=== PATIENT | male | born 1945 | race Caucasian/White ===

== ENCOUNTER 2019-12-04 11:05 | Observation (INO) ==
[2019-12-04 12:45] LABS: Basophils % 0.4 %; Eosinophils # 0.1 K/mcL (0.0-0.6); Eosinophils % 1.2 %; Hematocrit 43.5 % (37.5-50.1); Hemoglobin 13.4 g/dL (12.9-16.9); Immature Granulocytes % 0.3 % (0-4); Lymphocytes % 26.3 %; Mean Corpuscular HGB Conc 30.8 g/dL (31.6-35.5); Mean Corpuscular Hemoglobin 30.1 pg (28.0-33.3); Mean Corpuscular Volume 97.8 fL (83.0-100.0); Mean Platelet Volume 10.8 fL (9.4-12.4); Monocytes # 0.6 K/mcL (0.0-1.3); Monocytes % 7.3 %; Platelet Count 207 K/mcL (140-400); Red Blood Count 4.45 M/mcL (4.19-5.50); Red Cell Distribution Width 14.7 % (11.5-14.5); Segmented Neutrophils % 64.5 %; White Blood Count 7.8 K/mcL (4.3-11.1)
[2019-12-04 13:15] LABS: BUN/Creatinine Ratio 20 (6-26); Blood Urea Nitrogen 15 mg/dL (8-23); Calcium 8.6 mg/dL (8.6-10.3); Carbon Dioxide 31 mEq/L (23-29); Chloride 104 mEq/L (98-107); Glucose 105 mg/dL (70-105); Osmolality,Calculated 293 (280-300); Potassium 4.5 mEq/L (3.5-5.1); Sodium 141 mEq/L (136-145); Troponin I < 0.03 ng/mL (< 0.04); eGFR For African Americans > 60 (> 60); eGFR For Non-African Americans > 60 (> 60)
[2019-12-04] MEDS ORDERED: Ondansetron 4 MG/2 ML VIAL IVP PRN (16:30)
[2019-12-04] MEDS ORDERED: Mag Hydrox/Al Hydrox/Simeth 30 ML UDC PO PRN (16:30)
[2019-12-04] MEDS ORDERED: Naloxone 0.4 MG/ML INJ IVP PRN (16:30)
[2019-12-04] MEDS ORDERED: MOM Conc 10 ML UD.LIQ PO PRN (16:30)
[2019-12-04] MEDS ORDERED: *HR* Promethazine 25 MG/ML VIAL IVP PRN (16:30)
[2019-12-04] MEDS ORDERED: Acetaminophen 325 MG TABLET PO PRN (16:30)
[2019-12-04] MEDS ORDERED: Nitroglycerin 0.4 MG TAB.SUBL SL PRN (16:33)
[2019-12-04] MEDS ORDERED: Ipratropium/Albuterol Neb 3 ML IH PRN (16:50)
[2019-12-04] MEDS: *HR* Heparin 5,000 UNIT/ML VIAL SQ SCH (17:52)
[2019-12-04] MEDS: Azithromycin 500 MG in 0.9 % Sodium Chloride 250 ML IVPB SCH (18:02)
[2019-12-04] MEDS: Budesonide/Formoterol 160/4.5 1 PUFF INH IH SCH (21:46)
[2019-12-04] MEDS: Ipratropium/Albuterol Neb 3 ML IH SCH (21:46)
[2019-12-04] MEDS: Melatonin 3 MG TABLET PO SCH (22:41)
[2019-12-05] MEDS: MethylPREDNISolone 40 MG/ML VIAL IVP SCH ×3 (01:20→17:12)
[2019-12-05] MEDS: Ipratropium/Albuterol Neb 3 ML IH SCH ×4 (03:52→22:08)
[2019-12-05 05:52] LABS: Basophils % 0.2 %; Eosinophils % 0.2 %; Hematocrit 44.9 % (37.5-50.1); Hemoglobin 13.4 g/dL (12.9-16.9); Immature Granulocytes % 0.4 % (0-4); Lymphocytes # 1.3 K/mcL (0.6-4.6); Lymphocytes % 15.8 %; Mean Corpuscular HGB Conc 29.8 g/dL (31.6-35.5); Mean Corpuscular Hemoglobin 28.9 pg (28.0-33.3); Mean Platelet Volume 10.8 fL (9.4-12.4); Monocytes # 0.1 K/mcL (0.0-1.3); Monocytes % 1.2 %; Neutrophils # 6.7 K/mcL (1.6-8.9); Platelet Count 237 K/mcL (140-400); Red Blood Count 4.63 M/mcL (4.19-5.50); Red Cell Distribution Width 14.6 % (11.5-14.5); Segmented Neutrophils % 82.2 %; White Blood Count 8.2 K/mcL (4.3-11.1)
[2019-12-05] MEDS: *HR* Heparin 5,000 UNIT/ML VIAL SQ SCH ×2 (06:10→17:13)
[2019-12-05 06:12] LABS: BUN/Creatinine Ratio 15 (6-26); Blood Urea Nitrogen 12 mg/dL (8-23); Calcium 8.7 mg/dL (8.6-10.3); Carbon Dioxide 33 mEq/L (23-29); Chloride 104 mEq/L (98-107); Chol/HDL Ratio 2.4 (0-4.9); Cholesterol 159 mg/dL (< 200); Glucose 131 mg/dL (70-105); HDL Cholesterol 66 mg/dL (40-59); LDL Cholesterol,Calculated 77 mg/dL (< 100); Magnesium 2.2 mg/dL (1.6-2.6); Osmolality,Calculated 296 (280-300); Potassium 4.6 mEq/L (3.5-5.1); Sodium 142 mEq/L (136-145); Triglycerides 78 mg/dL (< 150); eGFR For African Americans > 60 (> 60); eGFR For Non-African Americans > 60 (> 60)
[2019-12-05] MEDS: Aspirin Enteric Coated 81 MG Tablet PO SCH (07:50)
[2019-12-05] MEDS: *HR* HYDROcodone/Acet 5/325 mg TABLET PO PRN ×2 (07:57→22:19)
[2019-12-05] MEDS: Budesonide/Formoterol 160/4.5 1 PUFF INH IH SCH ×2 (09:28→22:08)
[2019-12-05] MEDS ORDERED: Perflutren Lipid Microsphere 1.3 ML in 0.9 % Sodium Chloride 8.7 ML IVP PRN (11:21)
[2019-12-05] MEDS ORDERED: Regadenoson 0.4 MG/5 ML SYRINGE IVP ONE (11:58)
[2019-12-05] MEDS: Azithromycin 500 MG in 0.9 % Sodium Chloride 250 ML IVPB SCH (18:24)
[2019-12-05] MEDS: Melatonin 3 MG TABLET PO SCH (22:18)
[2019-12-05] MEDS: Fluticasone Propionate Nasal 50 MCG/SPRAY BOTTLE NS SCH (22:19)
[2019-12-06] MEDS: MethylPREDNISolone 40 MG/ML VIAL IVP SCH ×2 (00:38→07:58)
[2019-12-06 02:59] LABS: BUN/Creatinine Ratio 21 (6-26); Blood Urea Nitrogen 16 mg/dL (8-23); Calcium 8.8 mg/dL (8.6-10.3); Carbon Dioxide 29 mEq/L (23-29); Chloride 104 mEq/L (98-107); Glucose 184 mg/dL (70-105); Osmolality,Calculated 296 (280-300); Phosphorous 2.8 mg/dL (2.7-4.5); Potassium 4.2 mEq/L (3.5-5.1); Sodium 140 mEq/L (136-145); eGFR For African Americans > 60 (> 60); eGFR For Non-African Americans > 60 (> 60)
[2019-12-06] MEDS: Ipratropium/Albuterol Neb 3 ML IH SCH ×3 (04:00→15:35)
[2019-12-06] MEDS: *HR* Heparin 5,000 UNIT/ML VIAL SQ SCH ×2 (05:45→16:07)
[2019-12-06] MEDS: Fluticasone Propionate Nasal 50 MCG/SPRAY BOTTLE NS SCH ×2 (07:44→07:59)
[2019-12-06] MEDS: Aspirin Enteric Coated 81 MG Tablet PO SCH (07:58)
[2019-12-06] MEDS: *HR* HYDROcodone/Acet 5/325 mg TABLET PO PRN (08:04)
[2019-12-06 09:27] LABS: Basophils % 0.1 %; Eosinophils % 0.1 %; Hematocrit 46.7 % (37.5-50.1); Hemoglobin 14.5 g/dL (12.9-16.9); Immature Granulocytes % 0.6 % (0-4); Lymphocytes # 1.3 K/mcL (0.6-4.6); Lymphocytes % 9.8 %; Mean Corpuscular Hemoglobin 29.7 pg (28.0-33.3); Mean Corpuscular Volume 95.5 fL (83.0-100.0); Mean Platelet Volume 10.7 fL (9.4-12.4); Monocytes # 0.6 K/mcL (0.0-1.3); Monocytes % 4.5 %; Neutrophils # 11.6 K/mcL (1.6-8.9); Platelet Count 276 K/mcL (140-400); Red Blood Count 4.89 M/mcL (4.19-5.50); Red Cell Distribution Width 14.5 % (11.5-14.5); Segmented Neutrophils % 84.9 %; White Blood Count 13.6 K/mcL (4.3-11.1)
[2019-12-06] MEDS: Budesonide/Formoterol 160/4.5 1 PUFF INH IH SCH (09:30)
[2019-12-06] MEDS ORDERED: Loratadine 10 MG TABLET PO PRN (10:55)
[2019-12-06] MEDS ORDERED: *HR* LORazepam 1 MG TABLET PO ONE (14:40)
[2019-12-06] MEDS ORDERED: Metoprolol XL (24 HR) Succ 25 MG TAB.ER.24H PO SCH (15:00)
[2019-12-06 15:54] VITALS: BP 158/80
[2019-12-06] MEDS ORDERED: Azithromycin 250 MG TABLET PO SCH (18:00)
[2019-12-06] MEDS ORDERED: Melatonin 3 MG TABLET PO SCH (21:00)
[2019-12-06] MEDS ORDERED: Finasteride 5 MG TABLET PO SCH (21:00)
[2019-12-06] MEDS ORDERED: rOPINIRole 1 MG TABLET PO SCH (21:00)
[2019-12-07] MEDS ORDERED: Naltrexone HCl 50 MG TABLET PO SCH (09:00)
[2019-12-07] MEDS ORDERED: Cyanocobalamin (B-12) 1,000 MCG TABLET PO SCH (09:00)
[2019-12-07] MEDS ORDERED: predniSONE 20 MG TABLET PO SCH (09:00)
[2019-12-07] MEDS ORDERED: Magnesium Oxide 400 MG TABLET PO SCH (09:00)
== END 2019-12-06 17:53 | disposition home or self-care (01) ==
LOC: EMEROOARM 11:05 → 3BNU 11:05
PROVIDERS: ADMIT Internal Medicine; ATTEND Internal Medicine

== ENCOUNTER 2020-08-11 20:12 | Inpatient (IN) ==
[2020-08-11] MEDS ORDERED: Isovue-370 500 ML BOTTLE IVP ONE (20:35)
[2020-08-11] MEDS ORDERED: Ipratropium/Albuterol Neb 3 ML IH ONE (20:44)
[2020-08-11] MEDS ORDERED: methylPREDNISolone 125 MG/2 ML VIAL IVP ONE (20:44)
[2020-08-11 21:11] LABS: Basophils % 0.3 %; Eosinophils # 0.2 K/mcL (0.0-0.6); Eosinophils % 1.7 %; Hematocrit 47.4 % (37.5-50.1); Hemoglobin 14.3 g/dL (12.9-16.9); Immature Granulocytes % 0.6 % (0-4); Lymphocytes # 2.6 K/mcL (0.6-4.6); Lymphocytes % 25.6 %; Mean Corpuscular HGB Conc 30.2 g/dL (31.6-35.5); Mean Corpuscular Hemoglobin 30.2 pg (28.0-33.3); Mean Corpuscular Volume 100.2 fL (83.0-100.0); Mean Platelet Volume 10.4 fL (9.4-12.4); Monocytes # 0.8 K/mcL (0.0-1.3); Monocytes % 7.7 %; Neutrophils # 6.5 K/mcL (1.6-8.9); Platelet Count 226 K/mcL (140-400); Red Blood Count 4.73 M/mcL (4.19-5.50); Red Cell Distribution Width 14.1 % (11.5-14.5); Segmented Neutrophils % 64.1 %; White Blood Count 10.2 K/mcL (4.3-11.1)
[2020-08-11 21:16] LABS: VBG HCO3 32 mEq/L (21-27); VBG PCO2 68 mmHg (41-51); VBG PH 7.28 pH Units (7.32-7.42); VBG PO2 45 mmHg (25-50)
[2020-08-11 21:32] LABS: BUN/Creatinine Ratio 20 (6-26); Blood Urea Nitrogen 15 mg/dL (8-23); Carbon Dioxide 37 mEq/L (23-29); Chloride 104 mEq/L (98-107); Glucose 81 mg/dL (70-105); Osmolality,Calculated 298 (280-300); Potassium 4.7 mEq/L (3.5-5.1); Sodium 144 mEq/L (136-145); eGFR For African Americans > 60 (> 60); eGFR For Non-African Americans > 60 (> 60)
[2020-08-11 21:33] LABS: Troponin I < 0.03 ng/mL (< 0.04)
[2020-08-11 23:25] LABS: ABG Base Excess 7 mEq/L (-2 to 3); ABG HCO3 34 mEq/L (21-27); ABG Oxygen Saturation 78 % (95-98); ABG PCO2 56 mmHg (35-45); ABG PH 7.39 pH Units (7.32-7.45); ABG PO2 44 mmHg (85-104); ABG TCO2 35 mEq/L (20-26)
[2020-08-11 23:57] LABS: Adenovirus Not Detected (Not Detect); Coronavirus 229E Not Detected (Not Detect); Coronavirus HKU1 Not Detected (Not Detect); Coronavirus NL63 Not Detected (Not Detect); Coronavirus OC43 Not Detected (Not Detect)
[2020-08-11 23:58] LABS: Bordetella Pertussis Not Detected (Not Detect); Chlamydophila pneumoniae Not Detected (Not Detect); Human Metapneumovirus Not Detected (Not Detect); Human Rhinovirus/Enterovirus Not Detected (Not Detect); Influenza A Subtype 2009 H1 Not Detected (Not Detect); Influenza B Not Detected (Not Detect); Mycoplasma pneumoniae Not Detected (Not Detect); Parainfluenza Virus 1 Not Detected (Not Detect); Parainfluenza Virus 2 Not Detected (Not Detect); Parainfluenza Virus 3 Not Detected (Not Detect); Parainfluenza Virus 4 Not Detected (Not Detect); Respiratory Syncytial Virus Not Detected (Not Detect); SARS-CoV-2 DETECTED (Not Detect)
[2020-08-12] MEDS ORDERED: Melatonin 3 MG TABLET PO PRN (01:19)
[2020-08-12] MEDS ORDERED: Naloxone 0.4 MG/ML INJ IVP PRN (01:19)
[2020-08-12] MEDS ORDERED: Acetaminophen 325 MG TABLET PO PRN ×2 (01:19→15:56)
[2020-08-12] MEDS ORDERED: Ondansetron 4 MG/2 ML VIAL IVP PRN (01:19)
[2020-08-12] MEDS ORDERED: Ipratropium/Albuterol Neb 3 ML IH SCH (04:00)
[2020-08-12] MEDS ORDERED: Ketorolac 15 MG/ML VIAL IVP PRN ×2 (04:10→15:57)
[2020-08-12 05:32] LABS: C-Reactive Protein < 5 mg/L (Less than 10); Lactate Dehydrogenase 173 Units/L (140-271)
[2020-08-12 05:49] LABS: Ferritin 78 ng/mL (20-250)
[2020-08-12] MEDS ORDERED: *HR* Heparin 5,000 UNIT/ML VIAL SQ SCH (06:00)
[2020-08-12] MEDS ORDERED: MethylPREDNISolone 40 MG/ML VIAL IVP SCH (06:00)
[2020-08-12] MEDS: Azithromycin 250 MG TABLET PO SCH (08:47)
[2020-08-12] MEDS ORDERED: Azithromycin 500 MG in 0.9 % Sodium Chloride 250 ML IVPB SCH (09:00)
[2020-08-12] MEDS ORDERED: rOPINIRole 1 MG TABLET PO SCH (21:00)
[2020-08-12] MEDS ORDERED: Melatonin 3 MG TABLET PO SCH (21:00)
[2020-08-12] MEDS: Finasteride 5 MG TABLET PO SCH (21:04)
[2020-08-12] MEDS ORDERED: Fluticasone Propionate Nasal 50 MCG/SPRAY BOTTLE NS PRN (23:04)
[2020-08-12] MEDS ORDERED: Saline Nasal Spray 44 ML BOTTLE NS PRN (23:04)
[2020-08-13 03:28] LABS: Mean Platelet Volume 10.7 fL (9.4-12.4); Platelet Count 207 K/mcL (140-400); Red Cell Distribution Width 13.9 % (11.5-14.5)
[2020-08-13 03:29] LABS: Hemoglobin 12.4 g/dL (12.9-16.9); White Blood Count 17.3 K/mcL (4.3-11.1)
[2020-08-13 03:43] LABS: BUN/Creatinine Ratio 32 (6-26); Blood Urea Nitrogen 22 mg/dL (8-23); Calcium 8.7 mg/dL (8.6-10.3); Carbon Dioxide 34 mEq/L (23-29); Chloride 102 mEq/L (98-107); Glucose 161 mg/dL (70-105); Osmolality,Calculated 295 (280-300); Potassium 3.8 mEq/L (3.5-5.1); Sodium 139 mEq/L (136-145); eGFR For African Americans > 60 (> 60); eGFR For Non-African Americans > 60 (> 60)
[2020-08-13 04:10] LABS: Estimated Average Glucose 143 mg/dl; Hemoglobin A1C 6.6 %
[2020-08-13] MEDS ORDERED: *HR* Enoxaparin 40 MG/0.4 ML SYRINGE SQ SCH (06:00)
[2020-08-13] MEDS: Metoprolol XL (24 HR) Succ 25 MG TAB.ER.24H PO SCH ×2 (08:57→09:04)
[2020-08-13] MEDS: Aspirin 81 MG TAB.CHEW PO SCH (08:57)
[2020-08-13] MEDS ORDERED: predniSONE 20 MG TABLET PO SCH (09:00)
[2020-08-13] MEDS: Azithromycin 250 MG TABLET PO SCH (09:05)
[2020-08-13] MEDS: MethylPREDNISolone 40 MG/ML VIAL IVP SCH ×2 (15:22→23:17)
[2020-08-13] MEDS: Budesonide/Formoterol 160/4.5 1 PUFF INH IH SCH ×2 (16:01→20:04)
[2020-08-13] MEDS ORDERED: Ipratropium/Albuterol Neb 3 ML IH ONE (18:37)
[2020-08-13] MEDS: Ipratropium/Albuterol Neb 3 ML IH SCH (20:03)
[2020-08-13] MEDS: Pregabalin 75 MG CAPSULE PO SCH (20:50)
[2020-08-13] MEDS: Finasteride 5 MG TABLET PO SCH (20:50)
[2020-08-13] MEDS: Apixaban 5 MG TABLET PO SCH (20:51)
[2020-08-13] MEDS ORDERED: Melatonin 3 MG TABLET PO SCH (21:00)
[2020-08-13] MEDS ORDERED: rOPINIRole 1 MG TABLET PO SCH (21:00)
[2020-08-14] MEDS: Ipratropium/Albuterol Neb 3 ML IH SCH ×5 (00:10→15:18)
[2020-08-14 08:08] LABS: ABG Base Excess 10 mEq/L (-2 to 3); ABG HCO3 43 mEq/L (21-27); ABG Oxygen Saturation 97 % (95-98); ABG PCO2 105 mmHg (35-45); ABG PH 7.22 pH Units (7.32-7.45); ABG PO2 118 mmHg (85-104); ABG TCO2 46 mEq/L (20-26)
[2020-08-14] MEDS: Pregabalin 75 MG CAPSULE PO SCH ×2 (09:25→20:37)
[2020-08-14] MEDS: Metoprolol XL (24 HR) Succ 25 MG TAB.ER.24H PO SCH (09:25)
[2020-08-14] MEDS: Aspirin 81 MG TAB.CHEW PO SCH (09:25)
[2020-08-14] MEDS: Azithromycin 250 MG TABLET PO SCH (09:25)
[2020-08-14] MEDS: Apixaban 5 MG TABLET PO SCH ×2 (09:25→20:37)
[2020-08-14] MEDS: MethylPREDNISolone 40 MG/ML VIAL IVP SCH ×2 (09:27→17:12)
[2020-08-14] MEDS: Budesonide/Formoterol 160/4.5 1 PUFF INH IH SCH ×2 (11:20→22:16)
[2020-08-14] MEDS ORDERED: Acetaminophen 325 MG TABLET PO PRN (20:09)
[2020-08-14] MEDS ORDERED: Ketorolac 15 MG/ML VIAL IVP PRN (20:11)
[2020-08-14] MEDS ORDERED: Naloxone 0.4 MG/ML INJ IVP PRN (20:12)
[2020-08-14] MEDS ORDERED: Saline Nasal Spray 44 ML BOTTLE NS PRN (20:13)
[2020-08-14] MEDS: Melatonin 3 MG TABLET PO SCH (20:36)
[2020-08-14] MEDS: Finasteride 5 MG TABLET PO SCH (20:38)
[2020-08-15] MEDS: Ipratropium/Albuterol Neb 3 ML IH SCH ×7 (00:11→23:50)
[2020-08-15] MEDS: MethylPREDNISolone 40 MG/ML VIAL IVP SCH ×2 (00:26→08:59)
[2020-08-15] MEDS: Budesonide/Formoterol 160/4.5 1 PUFF INH IH SCH ×2 (07:54→19:41)
[2020-08-15] MEDS: Pregabalin 75 MG CAPSULE PO SCH ×2 (08:58→20:19)
[2020-08-15] MEDS: Aspirin 81 MG TAB.CHEW PO SCH (08:58)
[2020-08-15] MEDS: Azithromycin 250 MG TABLET PO SCH (08:58)
[2020-08-15] MEDS: Apixaban 5 MG TABLET PO SCH ×2 (08:59→20:19)
[2020-08-15] MEDS: Finasteride 5 MG TABLET PO SCH (08:59)
[2020-08-15] MEDS: Metoprolol XL (24 HR) Succ 25 MG TAB.ER.24H PO SCH (08:59)
[2020-08-15] MEDS: Fluticasone Propionate Nasal 50 MCG/SPRAY BOTTLE NS SCH (09:01)
[2020-08-15 09:04] LABS: VBG HCO3 34 mEq/L (21-27); VBG PCO2 50 mmHg (41-51); VBG PH 7.44 pH Units (7.32-7.42); VBG PO2 129 mmHg (25-50)
[2020-08-15 09:22] LABS: BUN/Creatinine Ratio 44 (6-26); Blood Urea Nitrogen 28 mg/dL (8-23); Carbon Dioxide 33 mEq/L (23-29); Chloride 100 mEq/L (98-107); Glucose 133 mg/dL (70-105); Osmolality,Calculated 297 (280-300); Potassium 4.3 mEq/L (3.5-5.1); Sodium 140 mEq/L (136-145); eGFR For African Americans > 60 (> 60); eGFR For Non-African Americans > 60 (> 60)
[2020-08-15] MEDS: predniSONE 20 MG TABLET PO SCH (12:44)
[2020-08-15] MEDS: Melatonin 3 MG TABLET PO SCH (20:20)
[2020-08-16] MEDS: Ipratropium/Albuterol Neb 3 ML IH SCH ×2 (03:38→07:38)
[2020-08-16 07:38] VITALS: BP 137/75
[2020-08-16] MEDS: Budesonide/Formoterol 160/4.5 1 PUFF INH IH SCH (07:38)
[2020-08-16] MEDS: predniSONE 20 MG TABLET PO SCH (08:13)
[2020-08-16] MEDS: Azithromycin 250 MG TABLET PO SCH (08:14)
[2020-08-16] MEDS: Pregabalin 75 MG CAPSULE PO SCH (08:14)
[2020-08-16] MEDS: Aspirin 81 MG TAB.CHEW PO SCH (08:14)
[2020-08-16] MEDS: Metoprolol XL (24 HR) Succ 25 MG TAB.ER.24H PO SCH (08:14)
[2020-08-16] MEDS: Apixaban 5 MG TABLET PO SCH (08:14)
[2020-08-16] MEDS: Finasteride 5 MG TABLET PO SCH (08:14)
[2020-08-16] MEDS: Fluticasone Propionate Nasal 50 MCG/SPRAY BOTTLE NS SCH (08:17)
== END 2020-08-16 10:52 | disposition home or self-care (01) | DRG 177 ==
LOC: 2NENU 20:12 → EMEROOARM 20:12 → SUATTDRO 08-12 00:01 → 2NENU 08-12 00:57 → 3BNU 08-13 15:53
PROVIDERS: ADMIT Family Medicine; ATTEND Internal Medicine

== ENCOUNTER 2021-08-28 21:38 | Inpatient (IN) ==
[2021-08-28] MEDS ORDERED: Isovue-370 500 ML BOTTLE IVP ONE (21:51)
[2021-08-28 22:17] LABS: ABG Base Excess 1 mEq/L (-2 to 3); ABG HCO3 33 mEq/L (21-27); ABG Oxygen Saturation 96 % (95-98); ABG PCO2 84 mmHg (35-45); ABG PO2 106 mmHg (85-104); ABG TCO2 35 mEq/L (20-26)
[2021-08-28 23:53] LABS: Basophils % 0.1 %; Hematocrit 48.3 % (37.5-50.1); Hemoglobin 14.5 g/dL (12.9-16.9); Immature Granulocytes % 0.4 % (0-4); Lymphocytes # 1.2 K/mcL (0.6-4.6); Lymphocytes % 5.3 %; Mean Corpuscular Volume 103.4 fL (83.0-100.0); Mean Platelet Volume 10.9 fL (9.4-12.4); Monocytes # 1.5 K/mcL (0.0-1.3); Monocytes % 6.6 %; Neutrophils # 19.5 K/mcL (1.6-8.9); Platelet Count 188 K/mcL (140-400); Red Blood Count 4.67 M/mcL (4.19-5.50); Red Cell Distribution Width 14.2 % (11.5-14.5); Segmented Neutrophils % 87.6 %; White Blood Count 22.3 K/mcL (4.3-11.1)
[2021-08-29 00:42] LABS: Prothrombin Time 11.5 Seconds (9.4-12.1)
[2021-08-29 00:44] LABS: Alanine Aminotransferase 12 Units/L (7-52); Albumin 3.9 g/dL (3.5-5.7); Albumin/Globulin Ratio 1.7 (1.1-2.2); Alkaline Phosphatase 97 Units/L (34-104); Aspartate Amino Transferase 14 Units/L (13-39); BUN/Creatinine Ratio 23 (6-26); Bilirubin,Direct 0.1 mg/dL (0.0-0.2); Bilirubin,Indirect 0.5 mg/dL (0.0-1.0); Bilirubin,Total 0.6 mg/dL (0.3-1.0); Blood Urea Nitrogen 25 mg/dL (8-23); Calcium 8.8 mg/dL (8.6-10.3); Carbon Dioxide 28 mEq/L (23-29); Chloride 104 mEq/L (98-107); Globulin 2.3 g/dL (2.4-3.5); Glucose 160 mg/dL (70-105); Osmolality,Calculated 300 (280-300); Potassium 4.8 mEq/L (3.5-5.1); Sodium 141 mEq/L (136-145); Total Protein 6.2 g/dL (6.4-8.9); Troponin I < 0.03 ng/mL (< 0.04); eGFR For African Americans > 60 (> 60); eGFR For Non-African Americans > 60 (> 60)
[2021-08-29 00:45] LABS: Activated Partial Thrombo Time 34.8 Seconds (26.0-36.0)
[2021-08-29] MEDS ORDERED: Azithromycin 500 MG in 0.9 % Sodium Chloride 250 ML IVPB ONE (01:27)
[2021-08-29] MEDS ORDERED: cefTRIAXone 1,000 MG in 0.9 % Sodium Chloride 10 ML IVP ONE (01:27)
[2021-08-29 02:45] LABS: Influenza A PCR Negative (Negative); Influenza B PCR Negative (Negative); Resp. Syncytial Virus PCR Negative (Negative)
[2021-08-29 02:52] LABS: SARS-CoV-2 by PCR (In House) Negative (Negative)
[2021-08-29] MEDS ORDERED: methylPREDNISolone 125 MG/2 ML VIAL IVP ONE (03:27)
[2021-08-29 03:45] LABS: ABG Base Excess 5 mEq/L (-2 to 3); ABG HCO3 34 mEq/L (21-27); ABG Oxygen Saturation 98 % (95-98); ABG PCO2 73 mmHg (35-45); ABG PH 7.28 pH Units (7.32-7.45); ABG PO2 117 mmHg (85-104); ABG TCO2 36 mEq/L (20-26)
[2021-08-29] MEDS ORDERED: Melatonin 3 MG TABLET PO PRN (04:59)
[2021-08-29] MEDS ORDERED: *HR* Promethazine 25 MG/ML VIAL IM PRN (04:59)
[2021-08-29] MEDS ORDERED: Ondansetron 4 MG/2 ML VIAL IVP PRN (04:59)
[2021-08-29] MEDS ORDERED: Naloxone 0.4 MG/ML INJ IVP PRN (04:59)
[2021-08-29] MEDS ORDERED: Acetaminophen 325 MG TABLET PO PRN (04:59)
[2021-08-29] MEDS ORDERED: Ipratropium/Albuterol Neb 3 ML IH PRN (05:02)
[2021-08-29] MEDS ORDERED: Azithromycin 500 MG in 0.9 % Sodium Chloride 250 ML IVPB SCH (06:00)
[2021-08-29 06:41] LABS: Basophils % 0.1 %; Hematocrit 45.5 % (37.5-50.1); Hemoglobin 13.9 g/dL (12.9-16.9); Immature Granulocytes % 0.5 % (0-4); Lymphocytes # 1.1 K/mcL (0.6-4.6); Lymphocytes % 5.3 %; Mean Corpuscular HGB Conc 30.5 g/dL (31.6-35.5); Mean Corpuscular Hemoglobin 30.5 pg (28.0-33.3); Mean Platelet Volume 10.6 fL (9.4-12.4); Monocytes # 0.8 K/mcL (0.0-1.3); Monocytes % 3.7 %; Neutrophils # 19.4 K/mcL (1.6-8.9); Platelet Count 186 K/mcL (140-400); Red Blood Count 4.55 M/mcL (4.19-5.50); Red Cell Distribution Width 14.1 % (11.5-14.5); Segmented Neutrophils % 90.4 %; White Blood Count 21.5 K/mcL (4.3-11.1)
[2021-08-29 06:47] LABS: INR 1.1; Prothrombin Time 12.8 Seconds (9.4-12.1)
[2021-08-29 06:59] LABS: Magnesium 2.5 mg/dL (1.6-2.6); Phosphorous 3.2 mg/dL (2.7-4.5)
[2021-08-29 07:14] LABS: BUN/Creatinine Ratio 27 (6-26); Blood Urea Nitrogen 24 mg/dL (8-23); Calcium 8.7 mg/dL (8.6-10.3); Carbon Dioxide 29 mEq/L (23-29); Chloride 104 mEq/L (98-107); Glucose 132 mg/dL (70-105); Osmolality,Calculated 294 (280-300); Potassium 4.9 mEq/L (3.5-5.1); Sodium 139 mEq/L (136-145); eGFR For African Americans > 60 (> 60); eGFR For Non-African Americans > 60 (> 60)
[2021-08-29] MEDS: Ipratropium/Albuterol Neb 3 ML IH SCH ×5 (07:56→23:40)
[2021-08-29] MEDS ORDERED: Vancomycin 1,500 MG/265 ML IV.SOLN IVPB SCH (08:00)
[2021-08-29] MEDS: Cefepime HCl 2,000 MG in 0.9 % Sodium Chloride 10 ML IVP SCH ×3 (09:35→23:55)
[2021-08-29] MEDS: Vancomycin 1,500 MG/265 ML IV.SOLN IVPB SCH ×2 (11:42→23:52)
[2021-08-29] MEDS: MethylPREDNISolone 40 MG/ML VIAL IVP SCH ×2 (13:46→20:43)
[2021-08-29] MEDS ORDERED: *HR* Dextrose 50 % in Water (Syg) 50 ML SYRINGE IVP PRN (16:05)
[2021-08-29] MEDS ORDERED: Dextrose 4 GM Chewable Tablets PO PRN ×2 (16:05)
[2021-08-29] MEDS ORDERED: D5% in Water 1,000 ML IVC PRN (16:05)
[2021-08-29] MEDS: Insulin LISPRO 300 UNITS/3 ML VIAL SUBQ SCH ×2 (17:35→22:02)
[2021-08-29] MEDS ORDERED: Pregabalin 50 MG CAPSULE PO ONE (20:31)
[2021-08-29] MEDS: Melatonin 3 MG TABLET PO SCH (20:42)
[2021-08-30] MEDS: Ipratropium/Albuterol Neb 3 ML IH SCH ×6 (03:47→23:49)
[2021-08-30] MEDS: MethylPREDNISolone 40 MG/ML VIAL IVP SCH ×4 (05:17→21:09)
[2021-08-30] MEDS: Azithromycin 500 MG in 0.9 % Sodium Chloride 250 ML IVPB SCH (05:18)
[2021-08-30 05:48] LABS: Basophils % 0.1 %; Hematocrit 36.5 % (37.5-50.1); Immature Granulocytes % 0.9 % (0-4); Lymphocytes # 1.8 K/mcL (0.6-4.6); Lymphocytes % 10.4 %; Mean Corpuscular Hemoglobin 30.3 pg (28.0-33.3); Mean Corpuscular Volume 97.9 fL (83.0-100.0); Mean Platelet Volume 11.1 fL (9.4-12.4); Monocytes # 0.9 K/mcL (0.0-1.3); Monocytes % 5.1 %; Neutrophils # 14.2 K/mcL (1.6-8.9); Platelet Count 197 K/mcL (140-400); Red Blood Count 3.73 M/mcL (4.19-5.50); Red Cell Distribution Width 14.1 % (11.5-14.5); Segmented Neutrophils % 83.5 %
[2021-08-30 05:53] LABS: Hemoglobin 11.3 g/dL (12.9-16.9)
[2021-08-30 06:09] LABS: BUN/Creatinine Ratio 36 (6-26); Blood Urea Nitrogen 25 mg/dL (8-23); Carbon Dioxide 31 mEq/L (23-29); Chloride 104 mEq/L (98-107); Glucose 138 mg/dL (70-105); Osmolality,Calculated 299 (280-300); Sodium 141 mEq/L (136-145); eGFR For African Americans > 60 (> 60); eGFR For Non-African Americans > 60 (> 60)
[2021-08-30] MEDS: Insulin LISPRO 300 UNITS/3 ML VIAL SUBQ SCH ×4 (08:48→21:48)
[2021-08-30] MEDS: Cefepime HCl 2,000 MG in 0.9 % Sodium Chloride 10 ML IVP SCH ×2 (09:27→16:22)
[2021-08-30 09:31] LABS: ABG Base Excess 5 mEq/L (-2 to 3); ABG HCO3 30 mEq/L (21-27); ABG Oxygen Saturation 94 % (95-98); ABG PCO2 45 mmHg (35-45); ABG PH 7.42 pH Units (7.32-7.45); ABG PO2 71 mmHg (85-104); ABG TCO2 31 mEq/L (20-26)
[2021-08-30] MEDS: Furosemide 20 MG TABLET PO SCH (12:16)
[2021-08-30] MEDS: Metoprolol XL (24 HR) Succ 50 MG TAB.ER.24H PO SCH (12:16)
[2021-08-30] MEDS: Simethicone 80 MG TAB.CHEW PO SCH ×3 (12:16→21:06)
[2021-08-30] MEDS: Vancomycin 1,500 MG/265 ML IV.SOLN IVPB SCH (12:16)
[2021-08-30] MEDS: Pregabalin 75 MG CAPSULE PO SCH (17:42)
[2021-08-30] MEDS: Budesonide/Formoterol 160/4.5 1 PUFF INH IH SCH (20:36)
[2021-08-30] MEDS ORDERED: Menthol 1 EACH LOZENGE MM PRN (20:41)
[2021-08-30] MEDS ORDERED: Apixaban 5 MG TABLET PO SCH (21:00)
[2021-08-30] MEDS: Magnesium Oxide 400 MG TABLET PO SCH (21:07)
[2021-08-30] MEDS: Melatonin 3 MG TABLET PO SCH (21:07)
[2021-08-30] MEDS: Finasteride 5 MG TABLET PO SCH (21:08)
[2021-08-31] MEDS: Cefepime HCl 2,000 MG in 0.9 % Sodium Chloride 10 ML IVP SCH ×4 (00:15→23:50)
[2021-08-31] MEDS: MethylPREDNISolone 40 MG/ML VIAL IVP SCH ×4 (04:08→21:05)
[2021-08-31] MEDS: Ipratropium/Albuterol Neb 3 ML IH SCH ×6 (04:34→23:57)
[2021-08-31 05:41] LABS: Basophils % 0.1 %; Hematocrit 36.3 % (37.5-50.1); Hemoglobin 11.3 g/dL (12.9-16.9); Immature Granulocytes % 1.2 % (0-4); Lymphocytes # 1.2 K/mcL (0.6-4.6); Lymphocytes % 8.2 %; Mean Corpuscular HGB Conc 31.1 g/dL (31.6-35.5); Mean Corpuscular Hemoglobin 30.2 pg (28.0-33.3); Mean Corpuscular Volume 97.1 fL (83.0-100.0); Mean Platelet Volume 10.9 fL (9.4-12.4); Monocytes # 0.7 K/mcL (0.0-1.3); Monocytes % 5.1 %; Neutrophils # 12.4 K/mcL (1.6-8.9); Platelet Count 220 K/mcL (140-400); Red Blood Count 3.74 M/mcL (4.19-5.50); Red Cell Distribution Width 14.5 % (11.5-14.5); Segmented Neutrophils % 85.4 %; White Blood Count 14.5 K/mcL (4.3-11.1)
[2021-08-31] MEDS: Azithromycin 500 MG in 0.9 % Sodium Chloride 250 ML IVPB SCH (05:46)
[2021-08-31] MEDS: *HR* Enoxaparin 40 MG/0.4 ML SYRINGE SQ SCH (05:49)
[2021-08-31 06:03] LABS: BUN/Creatinine Ratio 37 (6-26); Blood Urea Nitrogen 26 mg/dL (8-23); Calcium 9.2 mg/dL (8.6-10.3); Carbon Dioxide 32 mEq/L (23-29); Chloride 105 mEq/L (98-107); Glucose 203 mg/dL (70-105); Osmolality,Calculated 305 (280-300); Potassium 3.9 mEq/L (3.5-5.1); Sodium 142 mEq/L (136-145); eGFR For African Americans > 60 (> 60); eGFR For Non-African Americans > 60 (> 60)
[2021-08-31] MEDS: Metoprolol XL (24 HR) Succ 50 MG TAB.ER.24H PO SCH (08:03)
[2021-08-31] MEDS: Pregabalin 50 MG CAPSULE PO SCH (08:04)
[2021-08-31] MEDS: Aspirin 81 MG TAB.CHEW PO SCH (08:04)
[2021-08-31] MEDS: Simethicone 80 MG TAB.CHEW PO SCH ×4 (08:04→21:02)
[2021-08-31] MEDS: Furosemide 20 MG TABLET PO SCH (08:04)
[2021-08-31] MEDS: Fluticasone Propionate Nasal 50 MCG/SPRAY BOTTLE NS SCH (08:05)
[2021-08-31] MEDS: *HR* HYDROcodone/Acet 5/325 mg TABLET PO PRN (08:10)
[2021-08-31] MEDS: Insulin DETEMIR 100 UNIT/ML X5UNITS SUBQ SCH ×2 (09:32→21:08)
[2021-08-31] MEDS: Budesonide/Formoterol 160/4.5 1 PUFF INH IH SCH ×2 (11:16→20:13)
[2021-08-31] MEDS: Insulin LISPRO 300 UNITS/3 ML VIAL SUBQ SCH ×3 (11:32→21:06)
[2021-08-31] MEDS: Pregabalin 75 MG CAPSULE PO SCH (16:25)
[2021-08-31] MEDS: Finasteride 5 MG TABLET PO SCH (21:02)
[2021-08-31] MEDS: Melatonin 3 MG TABLET PO SCH (21:02)
[2021-08-31] MEDS: Magnesium Oxide 400 MG TABLET PO SCH (21:02)
[2021-09-01] MEDS: MethylPREDNISolone 40 MG/ML VIAL IVP SCH ×2 (03:08→09:28)
[2021-09-01] MEDS: Ipratropium/Albuterol Neb 3 ML IH SCH ×5 (04:20→20:17)
[2021-09-01 04:55] LABS: Basophils % 0.2 %; Hematocrit 37.9 % (37.5-50.1); Hemoglobin 11.6 g/dL (12.9-16.9); Immature Granulocytes % 2.3 % (0-4); Lymphocytes # 1.4 K/mcL (0.6-4.6); Lymphocytes % 9.1 %; Mean Corpuscular HGB Conc 30.6 g/dL (31.6-35.5); Mean Corpuscular Hemoglobin 29.9 pg (28.0-33.3); Mean Corpuscular Volume 97.7 fL (83.0-100.0); Mean Platelet Volume 10.4 fL (9.4-12.4); Monocytes # 0.6 K/mcL (0.0-1.3); Monocytes % 4.1 %; Neutrophils # 13.1 K/mcL (1.6-8.9); Platelet Count 226 K/mcL (140-400); Red Blood Count 3.88 M/mcL (4.19-5.50); Red Cell Distribution Width 14.2 % (11.5-14.5); Segmented Neutrophils % 84.3 %; White Blood Count 15.6 K/mcL (4.3-11.1)
[2021-09-01 05:19] LABS: BUN/Creatinine Ratio 43 (6-26); Blood Urea Nitrogen 28 mg/dL (8-23); Calcium 9.4 mg/dL (8.6-10.3); Carbon Dioxide 31 mEq/L (23-29); Chloride 103 mEq/L (98-107); Glucose 214 mg/dL (70-105); Osmolality,Calculated 304 (280-300); Sodium 141 mEq/L (136-145); eGFR For African Americans > 60 (> 60); eGFR For Non-African Americans > 60 (> 60)
[2021-09-01] MEDS: *HR* Enoxaparin 40 MG/0.4 ML SYRINGE SQ SCH (05:57)
[2021-09-01] MEDS: Azithromycin 500 MG in 0.9 % Sodium Chloride 250 ML IVPB SCH (05:57)
[2021-09-01] MEDS: Budesonide/Formoterol 160/4.5 1 PUFF INH IH SCH ×2 (07:11→20:16)
[2021-09-01] MEDS: *HR* HYDROcodone/Acet 5/325 mg TABLET PO PRN (09:25)
[2021-09-01] MEDS: Furosemide 20 MG TABLET PO SCH (09:25)
[2021-09-01] MEDS: Pregabalin 50 MG CAPSULE PO SCH (09:26)
[2021-09-01] MEDS: Metoprolol XL (24 HR) Succ 50 MG TAB.ER.24H PO SCH (09:27)
[2021-09-01] MEDS: Aspirin 81 MG TAB.CHEW PO SCH (09:27)
[2021-09-01] MEDS: Simethicone 80 MG TAB.CHEW PO SCH ×4 (09:27→20:48)
[2021-09-01] MEDS: Fluticasone Propionate Nasal 50 MCG/SPRAY BOTTLE NS SCH (09:28)
[2021-09-01] MEDS: Cefepime HCl 2,000 MG in 0.9 % Sodium Chloride 10 ML IVP SCH ×2 (09:29→16:46)
[2021-09-01] MEDS: Insulin DETEMIR 100 UNIT/ML X5UNITS SUBQ SCH ×2 (09:35→20:49)
[2021-09-01] MEDS: Insulin LISPRO 300 UNITS/3 ML VIAL SUBQ SCH ×4 (09:35→20:49)
[2021-09-01] MEDS ORDERED: Furosemide 40 MG/4 ML VIAL IVP ONE (11:08)
[2021-09-01] MEDS: Pregabalin 75 MG CAPSULE PO SCH (16:46)
[2021-09-01] MEDS: Finasteride 5 MG TABLET PO SCH (20:48)
[2021-09-01] MEDS: Melatonin 3 MG TABLET PO SCH (20:48)
[2021-09-01] MEDS: Magnesium Oxide 400 MG TABLET PO SCH (20:48)
[2021-09-02] MEDS: Ipratropium/Albuterol Neb 3 ML IH SCH ×6 (00:10→20:39)
[2021-09-02] MEDS: Cefepime HCl 2,000 MG in 0.9 % Sodium Chloride 10 ML IVP SCH ×4 (00:20→23:16)
[2021-09-02 03:42] LABS: VBG HCO3 28 mEq/L (21-27); VBG PCO2 36 mmHg (41-51); VBG PO2 210 mmHg (25-50)
[2021-09-02 03:57] LABS: Basophils # 0.2 K/mcL (0.0-0.2); Basophils % 1.1 %; Eosinophils % 0.1 %; Hematocrit 39.7 % (37.5-50.1); Hemoglobin 12.4 g/dL (12.9-16.9); Immature Granulocytes % 4.2 % (0-4); Lymphocytes # 2.2 K/mcL (0.6-4.6); Lymphocytes % 13.5 %; Mean Corpuscular HGB Conc 31.2 g/dL (31.6-35.5); Mean Corpuscular Hemoglobin 30.3 pg (28.0-33.3); Mean Corpuscular Volume 97.1 fL (83.0-100.0); Mean Platelet Volume 10.7 fL (9.4-12.4); Monocytes # 1.2 K/mcL (0.0-1.3); Monocytes % 7.4 %; Neutrophils # 11.9 K/mcL (1.6-8.9); Platelet Count 230 K/mcL (140-400); Red Blood Count 4.09 M/mcL (4.19-5.50); Red Cell Distribution Width 14.1 % (11.5-14.5); Segmented Neutrophils % 73.7 %; White Blood Count 16.1 K/mcL (4.3-11.1)
[2021-09-02] MEDS: Azithromycin 500 MG in 0.9 % Sodium Chloride 250 ML IVPB SCH (06:04)
[2021-09-02] MEDS: *HR* Enoxaparin 40 MG/0.4 ML SYRINGE SQ SCH (06:07)
[2021-09-02] MEDS: Budesonide/Formoterol 160/4.5 1 PUFF INH IH SCH ×2 (07:51→20:39)
[2021-09-02] MEDS: Insulin LISPRO 300 UNITS/3 ML VIAL SUBQ SCH ×4 (08:22→17:32)
[2021-09-02] MEDS: Metoprolol XL (24 HR) Succ 50 MG TAB.ER.24H PO SCH (08:36)
[2021-09-02] MEDS: Simethicone 80 MG TAB.CHEW PO SCH ×4 (08:36→20:19)
[2021-09-02] MEDS: Pregabalin 50 MG CAPSULE PO SCH (08:36)
[2021-09-02] MEDS: Furosemide 20 MG TABLET PO SCH (08:36)
[2021-09-02] MEDS: Aspirin 81 MG TAB.CHEW PO SCH (08:36)
[2021-09-02] MEDS: *HR* HYDROcodone/Acet 5/325 mg TABLET PO PRN (08:37)
[2021-09-02] MEDS: predniSONE 20 MG TABLET PO SCH (08:37)
[2021-09-02] MEDS: Insulin DETEMIR 100 UNIT/ML X5UNITS SUBQ SCH (08:40)
[2021-09-02] MEDS: Fluticasone Propionate Nasal 50 MCG/SPRAY BOTTLE NS SCH (08:40)
[2021-09-02] MEDS ORDERED: Insulin LISPRO 300 UNITS/3 ML VIAL SUBQ SCH (09:11)
[2021-09-02 14:14] LABS: BUN/Creatinine Ratio 42 (6-26); Blood Urea Nitrogen 36 mg/dL (8-23); Calcium 9.2 mg/dL (8.6-10.3); Carbon Dioxide 34 mEq/L (23-29); Chloride 99 mEq/L (98-107); Glucose 142 mg/dL (70-105); Osmolality,Calculated 301 (280-300); Potassium 4.1 mEq/L (3.5-5.1); Sodium 140 mEq/L (136-145); eGFR For African Americans > 60 (> 60); eGFR For Non-African Americans > 60 (> 60)
[2021-09-02] MEDS ORDERED: polyethylene glycoL 3350 17 GM POWD.PACK PO PRN (15:09)
[2021-09-02] MEDS: Pregabalin 75 MG CAPSULE PO SCH (17:31)
[2021-09-02] MEDS: Magnesium Oxide 400 MG TABLET PO SCH (20:17)
[2021-09-02] MEDS: Melatonin 3 MG TABLET PO SCH (20:18)
[2021-09-02] MEDS: Finasteride 5 MG TABLET PO SCH (20:20)
[2021-09-03] MEDS: Ipratropium/Albuterol Neb 3 ML IH SCH ×4 (00:03→09:20)
[2021-09-03 06:01] LABS: Hematocrit 41.6 % (37.5-50.1); Hemoglobin 12.8 g/dL (12.9-16.9); Mean Corpuscular HGB Conc 30.8 g/dL (31.6-35.5); Mean Corpuscular Hemoglobin 30.1 pg (28.0-33.3); Mean Corpuscular Volume 97.9 fL (83.0-100.0); Mean Platelet Volume 10.4 fL (9.4-12.4); Platelet Count 213 K/mcL (140-400); Red Blood Count 4.25 M/mcL (4.19-5.50); Red Cell Distribution Width 14.1 % (11.5-14.5); White Blood Count 12.9 K/mcL (4.3-11.1)
[2021-09-03 06:18] LABS: Estimated Average Glucose 134 mg/dl; Hemoglobin A1C 6.3 %
[2021-09-03] MEDS: Azithromycin 500 MG in 0.9 % Sodium Chloride 250 ML IVPB SCH (06:22)
[2021-09-03] MEDS: *HR* Enoxaparin 40 MG/0.4 ML SYRINGE SQ SCH (06:22)
[2021-09-03 06:47] VITALS: BP 115/59; PULSE 66; TEMP 98.1; O2SAT 98
[2021-09-03 06:55] LABS: BUN/Creatinine Ratio 42 (6-26); Blood Urea Nitrogen 31 mg/dL (8-23); Calcium 8.8 mg/dL (8.6-10.3); Carbon Dioxide 38 mEq/L (23-29); Chloride 100 mEq/L (98-107); Glucose 91 mg/dL (70-105); Osmolality,Calculated 302 (280-300); Potassium 3.7 mEq/L (3.5-5.1); Sodium 143 mEq/L (136-145); eGFR For African Americans > 60 (> 60); eGFR For Non-African Americans > 60 (> 60)
[2021-09-03] MEDS: Pregabalin 50 MG CAPSULE PO SCH (08:38)
[2021-09-03] MEDS: Insulin LISPRO 300 UNITS/3 ML VIAL SUBQ SCH (08:38)
[2021-09-03] MEDS: Furosemide 20 MG TABLET PO SCH (08:39)
[2021-09-03] MEDS: predniSONE 20 MG TABLET PO SCH (08:39)
[2021-09-03] MEDS: Metoprolol XL (24 HR) Succ 50 MG TAB.ER.24H PO SCH (08:39)
[2021-09-03] MEDS: Simethicone 80 MG TAB.CHEW PO SCH (08:40)
[2021-09-03] MEDS: Aspirin 81 MG TAB.CHEW PO SCH (08:40)
[2021-09-03] MEDS: Fluticasone Propionate Nasal 50 MCG/SPRAY BOTTLE NS SCH (08:41)
[2021-09-03] MEDS ORDERED: levoFLOXacin 750 MG TABLET PO SCH (09:00)
[2021-09-03] MEDS: Budesonide/Formoterol 160/4.5 1 PUFF INH IH SCH (09:20)
== END 2021-09-03 11:15 | disposition home health service (06) | DRG 871 ==
LOC: EMEROOARM 21:38 → 2NENU 21:38 → SUATTDRO 08-29 19:05
PROVIDERS: ADMIT Internal Medicine; ATTEND Hospitalist

== ENCOUNTER 2021-11-19 23:55 | Inpatient (IN) ==
[2021-11-20] MEDS ORDERED: predniSONE 20 MG TABLET PO ONE (00:25)
[2021-11-20] MEDS ORDERED: cefTRIAXone 1,000 MG in 0.9 % Sodium Chloride 10 ML IVP ONE (00:25)
[2021-11-20] MEDS ORDERED: Ipratropium/Albuterol Neb 3 ML IH ONE (00:25)
[2021-11-20 00:50] LABS: Basophils % 0.2 %; Eosinophils % 0.2 %; Hematocrit 42.4 % (37.5-50.1); Hemoglobin 12.9 g/dL (12.9-16.9); Immature Granulocytes % 0.5 % (0-4); Lymphocytes # 1.1 K/mcL (0.6-4.6); Lymphocytes % 5.9 %; Mean Corpuscular HGB Conc 30.4 g/dL (31.6-35.5); Mean Corpuscular Hemoglobin 30.1 pg (28.0-33.3); Mean Corpuscular Volume 98.8 fL (83.0-100.0); Mean Platelet Volume 10.7 fL (9.4-12.4); Monocytes # 0.9 K/mcL (0.0-1.3); Monocytes % 4.4 %; Neutrophils # 17.2 K/mcL (1.6-8.9); Platelet Count 237 K/mcL (140-400); Red Blood Count 4.29 M/mcL (4.19-5.50); Red Cell Distribution Width 14.6 % (11.5-14.5); Segmented Neutrophils % 88.8 %; White Blood Count 19.3 K/mcL (4.3-11.1)
[2021-11-20 00:54] LABS: Activated Partial Thrombo Time 37.3 Seconds (26.0-36.0); INR 1.2; Prothrombin Time 13.9 Seconds (9.4-12.1)
[2021-11-20 01:08] LABS: Alanine Aminotransferase 14 Units/L (7-52); Albumin 3.7 g/dL (3.5-5.7); Albumin/Globulin Ratio 1.4 (1.1-2.2); Alkaline Phosphatase 98 Units/L (34-104); Aspartate Amino Transferase 17 Units/L (13-39); BUN/Creatinine Ratio 18 (6-26); Bilirubin,Direct 0.1 mg/dL (0.0-0.2); Bilirubin,Indirect 0.4 mg/dL (0.0-1.0); Bilirubin,Total 0.5 mg/dL (0.3-1.0); Blood Urea Nitrogen 14 mg/dL (8-23); Calcium 8.7 mg/dL (8.6-10.3); Carbon Dioxide 31 mEq/L (23-29); Chloride 100 mEq/L (98-107); Globulin 2.6 g/dL (2.4-3.5); Glucose 139 mg/dL (70-105); Osmolality,Calculated 293 (280-300); Sodium 140 mEq/L (136-145); Total Protein 6.3 g/dL (6.4-8.9); Troponin I < 0.03 ng/mL (< 0.04); eGFR For African Americans > 60 (> 60); eGFR For Non-African Americans > 60 (> 60)
[2021-11-20 01:30] LABS: Adenovirus Not Detected (Not Detect); Bordetella Pertussis Not Detected (Not Detect); Chlamydophila pneumoniae Not Detected (Not Detect); Coronavirus 229E Not Detected (Not Detect); Coronavirus HKU1 Not Detected (Not Detect); Coronavirus NL63 Not Detected (Not Detect); Coronavirus OC43 Not Detected (Not Detect); Human Metapneumovirus Not Detected (Not Detect); Human Rhinovirus/Enterovirus Not Detected (Not Detect); Influenza A Subtype 2009 H1 Not Detected (Not Detect); Influenza B Not Detected (Not Detect); Mycoplasma pneumoniae Not Detected (Not Detect); Parainfluenza Virus 1 Not Detected (Not Detect); Parainfluenza Virus 2 Not Detected (Not Detect); Parainfluenza Virus 3 Not Detected (Not Detect); Parainfluenza Virus 4 Not Detected (Not Detect); Respiratory Syncytial Virus Not Detected (Not Detect); SARS-CoV-2 Not Detected (Not Detect)
[2021-11-20] MEDS ORDERED: Azithromycin 500 MG in 0.9 % Sodium Chloride 250 ML IVPB ONE (03:45)
[2021-11-20] MEDS ORDERED: Naloxone 0.4 MG/ML INJ IVP PRN (04:10)
[2021-11-20] MEDS ORDERED: Ondansetron 4 MG/2 ML VIAL IVP PRN (04:10)
[2021-11-20] MEDS ORDERED: Acetaminophen 325 MG TABLET PO PRN (04:10)
[2021-11-20] MEDS ORDERED: Melatonin 3 MG TABLET PO PRN (04:10)
[2021-11-20] MEDS ORDERED: methylPREDNISolone 125 MG/2 ML VIAL IVP ONE (05:19)
[2021-11-20] MEDS ORDERED: Saline Nasal Spray 44 ML BOTTLE NS PRN (05:21)
[2021-11-20] MEDS ORDERED: Saliva Stimulant 44.3ml BOTTLE PO PRN (05:21)
[2021-11-20 05:40] LABS: Magnesium 2.1 mg/dL (1.6-2.6); Phosphorous 2.4 mg/dL (2.7-4.5)
[2021-11-20] MEDS ORDERED: Dextrose Gel 15 GM/37.5 ML TUBE PO PRN ×2 (05:49)
[2021-11-20] MEDS ORDERED: *HR* Dextrose 50 % in Water (Syg) 50 ML SYRINGE IVP PRN (05:49)
[2021-11-20] MEDS ORDERED: D5% in Water 1,000 ML IVC PRN (05:49)
[2021-11-20] MEDS ORDERED: 0.9 % Sodium Chloride 1,000 ML IVC SCH (06:00)
[2021-11-20] MEDS ORDERED: Vancomycin 2,000 MG/520 ML IV.SOLN IVPB ONE (06:00)
[2021-11-20] MEDS: Acetylcysteine 10% 2 ML INHSOL IH SCH ×4 (08:26→22:45)
[2021-11-20] MEDS: *HR* Enoxaparin 40 MG/0.4 ML SYRINGE SQ SCH (08:26)
[2021-11-20] MEDS: Insulin LISPRO 300 UNITS/3 ML VIAL SUBQ SCH ×3 (08:40→17:23)
[2021-11-20] MEDS: Multivit/Ca/Min/Fe/FA 1 TAB TABLET PO SCH (08:40)
[2021-11-20] MEDS: Piperacillin/Tazobactam 3.375 GM in 0.9 % Sodium Chloride Mini Bag 100 ML IVPB SCH ×3 (08:41→23:44)
[2021-11-20] MEDS: levoFLOXacin 750 MG/150 ML 750 MG/150 ML BAG IVPB SCH (08:41)
[2021-11-20] MEDS: Artificial Tears SOLN 15 ML BOTTLE BOTH EYES SCH ×2 (08:55→21:18)
[2021-11-20] MEDS: Chlorhexidine Rinse 15 ML MOUTHWASH MM SCH ×2 (08:55→20:27)
[2021-11-20] MEDS: MethylPREDNISolone 40 MG/ML VIAL IVP SCH ×3 (11:54→23:46)
[2021-11-20] MEDS: Budesonide/Formoterol 160/4.5 1 PUFF INH IH SCH ×2 (13:40→22:45)
[2021-11-20] MEDS: Ipratropium/Albuterol Neb 3 ML IH SCH ×4 (13:40→22:45)
[2021-11-20] MEDS: Vancomycin 1,250 MG/262.5 ML IV.SOLN IVPB SCH (18:15)
[2021-11-20] MEDS: *HR* HYDROcodone/Acet 5/325 mg TABLET PO PRN (20:27)
[2021-11-21] MEDS: Pregabalin 75 MG CAPSULE PO SCH ×2 (00:52→22:13)
[2021-11-21] MEDS: Finasteride 5 MG TABLET PO SCH ×2 (00:52→22:13)
[2021-11-21] MEDS: Magnesium Oxide 400 MG TABLET PO SCH ×2 (00:52→22:14)
[2021-11-21] MEDS: Acetylcysteine 10% 2 ML INHSOL IH SCH ×4 (04:20→19:49)
[2021-11-21] MEDS: Ipratropium/Albuterol Neb 3 ML IH SCH ×6 (04:20→23:03)
[2021-11-21 04:39] LABS: Basophils % 0.1 %; Hematocrit 35.7 % (37.5-50.1); Lymphocytes # 1.3 K/mcL (0.6-4.6); Lymphocytes % 6.2 %; Mean Corpuscular HGB Conc 30.5 g/dL (31.6-35.5); Mean Corpuscular Hemoglobin 30.4 pg (28.0-33.3); Mean Corpuscular Volume 99.4 fL (83.0-100.0); Monocytes # 0.7 K/mcL (0.0-1.3); Monocytes % 3.4 %; Neutrophils # 18.6 K/mcL (1.6-8.9); Platelet Count 201 K/mcL (140-400); Red Blood Count 3.59 M/mcL (4.19-5.50); Red Cell Distribution Width 14.6 % (11.5-14.5); Segmented Neutrophils % 89.3 %; White Blood Count 20.9 K/mcL (4.3-11.1)
[2021-11-21 04:50] LABS: Hemoglobin 10.9 g/dL (12.9-16.9)
[2021-11-21 04:51] LABS: INR 1.1; Prothrombin Time 12.2 Seconds (9.4-12.1)
[2021-11-21 04:54] LABS: Activated Partial Thrombo Time 30.9 Seconds (26.0-36.0)
[2021-11-21 05:00] LABS: BUN/Creatinine Ratio 21 (6-26); Blood Urea Nitrogen 16 mg/dL (8-23); Calcium 8.5 mg/dL (8.6-10.3); Carbon Dioxide 33 mEq/L (23-29); Chloride 104 mEq/L (98-107); Glucose 190 mg/dL (70-105); Osmolality,Calculated 298 (280-300); Sodium 141 mEq/L (136-145); eGFR For African Americans > 60 (> 60); eGFR For Non-African Americans > 60 (> 60)
[2021-11-21] MEDS: Vancomycin 1,250 MG/262.5 ML IV.SOLN IVPB SCH (05:25)
[2021-11-21] MEDS: MethylPREDNISolone 40 MG/ML VIAL IVP SCH ×3 (05:26→17:33)
[2021-11-21] MEDS: *HR* Enoxaparin 40 MG/0.4 ML SYRINGE SQ SCH (05:26)
[2021-11-21] MEDS: Budesonide/Formoterol 160/4.5 1 PUFF INH IH SCH ×2 (07:35→19:49)
[2021-11-21] MEDS: Piperacillin/Tazobactam 3.375 GM in 0.9 % Sodium Chloride Mini Bag 100 ML IVPB SCH (08:04)
[2021-11-21] MEDS: levoFLOXacin 750 MG/150 ML 750 MG/150 ML BAG IVPB SCH (08:05)
[2021-11-21] MEDS: Chlorhexidine Rinse 15 ML MOUTHWASH MM SCH ×2 (08:05→22:16)
[2021-11-21] MEDS: Multivit/Ca/Min/Fe/FA 1 TAB TABLET PO SCH (08:05)
[2021-11-21] MEDS: Artificial Tears SOLN 15 ML BOTTLE BOTH EYES SCH ×2 (08:05→22:16)
[2021-11-21] MEDS: Insulin LISPRO 300 UNITS/3 ML VIAL SUBQ SCH ×3 (08:13→16:48)
[2021-11-21] MEDS ORDERED: Melatonin 3 MG TABLET PO PRN (11:05)
[2021-11-21] MEDS: Tiotropium 10 INH DOSE IH SCH (11:15)
[2021-11-21] MEDS: Pregabalin 50 MG CAPSULE PO SCH (11:48)
[2021-11-21] MEDS: Metoprolol XL (24 HR) Succ 50 MG TAB.ER.24H PO SCH (11:48)
[2021-11-21] MEDS: *HR* HYDROcodone/Acet 5/325 mg TABLET PO PRN (11:58)
[2021-11-21] MEDS: Fluticasone Propionate Nasal 50 MCG/SPRAY BOTTLE NS SCH (12:16)
[2021-11-21] MEDS: Apixaban 5 MG TABLET PO SCH (22:14)
[2021-11-22] MEDS: MethylPREDNISolone 40 MG/ML VIAL IVP SCH ×4 (00:46→21:12)
[2021-11-22] MEDS: Acetylcysteine 10% 2 ML INHSOL IH SCH ×4 (03:57→23:20)
[2021-11-22] MEDS: Ipratropium/Albuterol Neb 3 ML IH SCH ×6 (03:57→23:20)
[2021-11-22 05:38] LABS: Basophils % 0.1 %; Hematocrit 37.3 % (37.5-50.1); Hemoglobin 11.6 g/dL (12.9-16.9); Immature Granulocytes % 0.7 % (0-4); Lymphocytes # 1.4 K/mcL (0.6-4.6); Mean Corpuscular HGB Conc 31.1 g/dL (31.6-35.5); Mean Corpuscular Hemoglobin 30.7 pg (28.0-33.3); Mean Corpuscular Volume 98.7 fL (83.0-100.0); Mean Platelet Volume 11.1 fL (9.4-12.4); Monocytes # 0.7 K/mcL (0.0-1.3); Monocytes % 3.3 %; Neutrophils # 18.1 K/mcL (1.6-8.9); Platelet Count 221 K/mcL (140-400); Red Blood Count 3.78 M/mcL (4.19-5.50); Red Cell Distribution Width 14.7 % (11.5-14.5); Segmented Neutrophils % 88.9 %; White Blood Count 20.4 K/mcL (4.3-11.1)
[2021-11-22 06:27] LABS: BUN/Creatinine Ratio 32 (6-26); Blood Urea Nitrogen 23 mg/dL (8-23); Calcium 8.5 mg/dL (8.6-10.3); Carbon Dioxide 33 mEq/L (23-29); Chloride 105 mEq/L (98-107); Glucose 143 mg/dL (70-105); Osmolality,Calculated 300 (280-300); Potassium 4.3 mEq/L (3.5-5.1); Sodium 142 mEq/L (136-145); eGFR For African Americans > 60 (> 60); eGFR For Non-African Americans > 60 (> 60)
[2021-11-22] MEDS: Tiotropium 10 INH DOSE IH SCH (07:24)
[2021-11-22] MEDS: Budesonide/Formoterol 160/4.5 1 PUFF INH IH SCH ×2 (07:25→20:01)
[2021-11-22] MEDS: Fluticasone Propionate Nasal 50 MCG/SPRAY BOTTLE NS SCH (09:11)
[2021-11-22] MEDS: Artificial Tears SOLN 15 ML BOTTLE BOTH EYES SCH ×2 (09:11→21:16)
[2021-11-22] MEDS: Chlorhexidine Rinse 15 ML MOUTHWASH MM SCH ×2 (09:11→21:15)
[2021-11-22] MEDS: Multivit/Ca/Min/Fe/FA 1 TAB TABLET PO SCH (09:12)
[2021-11-22] MEDS: Apixaban 5 MG TABLET PO SCH ×2 (09:12→21:15)
[2021-11-22] MEDS: Metoprolol XL (24 HR) Succ 50 MG TAB.ER.24H PO SCH (09:12)
[2021-11-22] MEDS: Pregabalin 50 MG CAPSULE PO SCH (09:12)
[2021-11-22] MEDS: Furosemide 20 MG TABLET PO SCH (09:12)
[2021-11-22] MEDS: Cyanocobalamin (B-12) 1,000 MCG TABLET PO SCH (09:13)
[2021-11-22] MEDS: Loratadine 10 MG TABLET PO SCH (09:13)
[2021-11-22] MEDS: Insulin LISPRO 300 UNITS/3 ML VIAL SUBQ SCH ×3 (09:13→16:54)
[2021-11-22] MEDS: levoFLOXacin 750 MG/150 ML 750 MG/150 ML BAG IVPB SCH (09:15)
[2021-11-22] MEDS ORDERED: Azithromycin 250 MG TABLET PO SCH (11:05)
[2021-11-22] MEDS: Magnesium Oxide 400 MG TABLET PO SCH (21:14)
[2021-11-22] MEDS: Pregabalin 75 MG CAPSULE PO SCH (21:14)
[2021-11-22] MEDS: Finasteride 5 MG TABLET PO SCH (21:15)
[2021-11-23] MEDS: Acetylcysteine 10% 2 ML INHSOL IH SCH ×4 (03:30→22:47)
[2021-11-23] MEDS: Ipratropium/Albuterol Neb 3 ML IH SCH ×6 (03:30→22:47)
[2021-11-23] MEDS: MethylPREDNISolone 40 MG/ML VIAL IVP SCH (03:37)
[2021-11-23] MEDS: Budesonide/Formoterol 160/4.5 1 PUFF INH IH SCH ×2 (07:52→22:47)
[2021-11-23] MEDS: Tiotropium 10 INH DOSE IH SCH (07:52)
[2021-11-23] MEDS: Insulin LISPRO 300 UNITS/3 ML VIAL SUBQ SCH ×3 (08:28→18:34)
[2021-11-23] MEDS: Furosemide 20 MG TABLET PO SCH (10:16)
[2021-11-23] MEDS: Fluticasone Propionate Nasal 50 MCG/SPRAY BOTTLE NS SCH (10:16)
[2021-11-23 10:17] LABS: Basophils % 0.2 %; Hematocrit 41.3 % (37.5-50.1); Hemoglobin 12.6 g/dL (12.9-16.9); Lymphocytes # 1.4 K/mcL (0.6-4.6); Lymphocytes % 8.6 %; Mean Corpuscular HGB Conc 30.5 g/dL (31.6-35.5); Mean Corpuscular Hemoglobin 30.2 pg (28.0-33.3); Mean Platelet Volume 10.9 fL (9.4-12.4); Monocytes # 0.4 K/mcL (0.0-1.3); Monocytes % 2.3 %; Neutrophils # 13.9 K/mcL (1.6-8.9); Platelet Count 223 K/mcL (140-400); Red Blood Count 4.17 M/mcL (4.19-5.50); Red Cell Distribution Width 14.7 % (11.5-14.5); Segmented Neutrophils % 87.9 %; White Blood Count 15.8 K/mcL (4.3-11.1)
[2021-11-23] MEDS: Cyanocobalamin (B-12) 1,000 MCG TABLET PO SCH (10:17)
[2021-11-23] MEDS: Multivit/Ca/Min/Fe/FA 1 TAB TABLET PO SCH (10:17)
[2021-11-23] MEDS: levoFLOXacin 750 MG TABLET PO SCH (10:17)
[2021-11-23] MEDS: Loratadine 10 MG TABLET PO SCH (10:18)
[2021-11-23] MEDS: Pregabalin 50 MG CAPSULE PO SCH (10:18)
[2021-11-23] MEDS: Metoprolol XL (24 HR) Succ 50 MG TAB.ER.24H PO SCH (10:18)
[2021-11-23] MEDS: Artificial Tears SOLN 15 ML BOTTLE BOTH EYES SCH ×2 (10:19→21:11)
[2021-11-23] MEDS: Chlorhexidine Rinse 15 ML MOUTHWASH MM SCH ×2 (10:19→21:10)
[2021-11-23] MEDS: Apixaban 5 MG TABLET PO SCH ×2 (10:21→21:10)
[2021-11-23 10:37] LABS: BUN/Creatinine Ratio 30 (6-26); Blood Urea Nitrogen 22 mg/dL (8-23); Calcium 8.7 mg/dL (8.6-10.3); Carbon Dioxide 31 mEq/L (23-29); Chloride 103 mEq/L (98-107); Glucose 211 mg/dL (70-105); Osmolality,Calculated 300 (280-300); Potassium 4.1 mEq/L (3.5-5.1); Sodium 140 mEq/L (136-145); eGFR For African Americans > 60 (> 60); eGFR For Non-African Americans > 60 (> 60)
[2021-11-23] MEDS ORDERED: MethylPREDNISolone 40 MG/ML VIAL IVP SCH ×2 (16:00→20:15)
[2021-11-23] MEDS: Pregabalin 75 MG CAPSULE PO SCH (21:11)
[2021-11-23] MEDS: Magnesium Oxide 400 MG TABLET PO SCH (21:11)
[2021-11-23] MEDS: Finasteride 5 MG TABLET PO SCH (21:11)
[2021-11-24] MEDS: Ipratropium/Albuterol Neb 3 ML IH SCH ×3 (03:32→11:25)
[2021-11-24] MEDS: Acetylcysteine 10% 2 ML INHSOL IH SCH ×2 (03:32→07:32)
[2021-11-24 05:27] LABS: Basophils % 0.3 %; Hematocrit 39.6 % (37.5-50.1); Hemoglobin 12.3 g/dL (12.9-16.9); Immature Granulocytes % 1.5 % (0-4); Lymphocytes # 1.6 K/mcL (0.6-4.6); Lymphocytes % 12.2 %; Mean Corpuscular HGB Conc 31.1 g/dL (31.6-35.5); Mean Corpuscular Hemoglobin 30.7 pg (28.0-33.3); Mean Corpuscular Volume 98.8 fL (83.0-100.0); Mean Platelet Volume 10.6 fL (9.4-12.4); Monocytes # 0.4 K/mcL (0.0-1.3); Monocytes % 3.4 %; Neutrophils # 10.6 K/mcL (1.6-8.9); Platelet Count 214 K/mcL (140-400); Red Blood Count 4.01 M/mcL (4.19-5.50); Red Cell Distribution Width 14.7 % (11.5-14.5); Segmented Neutrophils % 82.6 %; White Blood Count 12.8 K/mcL (4.3-11.1)
[2021-11-24 05:46] LABS: BUN/Creatinine Ratio 34 (6-26); Blood Urea Nitrogen 24 mg/dL (8-23); Calcium 7.9 mg/dL (8.6-10.3); Carbon Dioxide 36 mEq/L (23-29); Chloride 103 mEq/L (98-107); Glucose 139 mg/dL (70-105); Osmolality,Calculated 300 (280-300); Potassium 4.3 mEq/L (3.5-5.1); Sodium 142 mEq/L (136-145); eGFR For African Americans > 60 (> 60); eGFR For Non-African Americans > 60 (> 60)
[2021-11-24 07:05] LABS: Mycoplasma pneumoniae IgG 0.44 U/L (<=0.09)
[2021-11-24] MEDS: Insulin LISPRO 300 UNITS/3 ML VIAL SUBQ SCH ×2 (07:30→11:49)
[2021-11-24] MEDS: Budesonide/Formoterol 160/4.5 1 PUFF INH IH SCH (07:32)
[2021-11-24] MEDS: Tiotropium 10 INH DOSE IH SCH (07:34)
[2021-11-24] MEDS ORDERED: predniSONE 20 MG TABLET PO SCH (09:00)
[2021-11-24] MEDS: Fluticasone Propionate Nasal 50 MCG/SPRAY BOTTLE NS SCH (09:44)
[2021-11-24] MEDS: Artificial Tears SOLN 15 ML BOTTLE BOTH EYES SCH (09:44)
[2021-11-24] MEDS: Metoprolol XL (24 HR) Succ 50 MG TAB.ER.24H PO SCH (09:46)
[2021-11-24] MEDS: Pregabalin 50 MG CAPSULE PO SCH (09:46)
[2021-11-24] MEDS: Multivit/Ca/Min/Fe/FA 1 TAB TABLET PO SCH (09:46)
[2021-11-24] MEDS: Cyanocobalamin (B-12) 1,000 MCG TABLET PO SCH (09:46)
[2021-11-24] MEDS: Loratadine 10 MG TABLET PO SCH (09:46)
[2021-11-24] MEDS: Apixaban 5 MG TABLET PO SCH (09:47)
[2021-11-24] MEDS: Chlorhexidine Rinse 15 ML MOUTHWASH MM SCH (09:47)
[2021-11-24] MEDS: Furosemide 20 MG TABLET PO SCH (09:47)
[2021-11-24] MEDS: levoFLOXacin 750 MG TABLET PO SCH (09:47)
[2021-11-24 12:01] VITALS: BP 102/64; PULSE 63; TEMP 97.6; O2SAT 94
== END 2021-11-24 15:17 | disposition home or self-care (01) | DRG 871 ==
LOC: EMEROOARM 23:55 → 3ANU 23:55 → SUATTDRO 11-20 11:41 → 3ANU 11-20 13:24 → SUATTDRO 11-21 18:59
PROVIDERS: ADMIT Family Medicine; ATTEND Internal Medicine

== ENCOUNTER 2022-03-14 18:23 | Observation (INO) ==
[2022-03-14 18:41] VITALS: TEMP 98.4
[2022-03-14] MEDS ORDERED: Azithromycin 500 MG in 0.9 % Sodium Chloride 250 ML IVPB ONE (19:19)
[2022-03-14] MEDS ORDERED: Ipratropium/Albuterol Neb 3 ML IH ONE (19:19)
[2022-03-14] MEDS ORDERED: Naloxone 0.4 MG/ML INJ IVP PRN (19:54)
[2022-03-14] MEDS ORDERED: Acetaminophen 325 MG TABLET PO PRN (19:54)
[2022-03-14] MEDS ORDERED: Melatonin 3 MG TABLET PO PRN (19:54)
[2022-03-14] MEDS ORDERED: Ondansetron ODT 4 MG TAB.RAPDIS SL PRN (19:54)
[2022-03-14] MEDS ORDERED: Ipratropium/Albuterol Neb 3 ML IH SCH (20:00)
[2022-03-14 21:19] VITALS: BP 117/56; PULSE 73; O2SAT 95
[2022-03-15] MEDS ORDERED: predniSONE 20 MG TABLET PO SCH (09:00)
[2022-03-15] MEDS ORDERED: Azithromycin 500 MG in 0.9 % Sodium Chloride 250 ML IVPB SCH (20:00)
== END 2022-03-14 23:59 | disposition other institution (70) ==
LOC: EMEROOARM 18:23 → 4WAOSI 18:23 → SUATTDRO 20:51 → 4WAOSI 21:12
PROVIDERS: ADMIT Internal Medicine; ATTEND Nurse Practitioner